=== PATIENT | female | born 1950 | race Caucasian/White ===

== ENCOUNTER → 2018-12-04 | Day surgery (SDC) | payer MEDICARE, OTHER ==
[~2018-12-04] MED LIST: BUPIVACAINE/PF 0.25% ONE; CARV3.1212 PO; DIGO125T PO; EPINEPHRINE 1 MG/ML, 1ML ONE; FENTANYL PF 250 MCG/5ML ONE; LISI2.5T PO; MIDAZOLAM 1 MG/ML, 2ML ONE; PROPOFOL 50 ML ONE; SIMV5TAB14 PO; VANCOMYCIN 1,000 MG ONE; WARF1TAB PO; metoprolol PO
== END | disposition home or self-care (01) ==
LOC: OR 15:00
PROVIDERS: ATTEND Plastic Surgery
DX: Z02.9 Encounter for administrative examinations, unspecified (principal)
CPT/HCPCS: J0171; J2250; J2704; J3010; J3370; J3490

== ENCOUNTER → 2019-02-05 | Outpatient (CLI) | payer OTHER ==
[~2019-02-05] MED LIST changes: -BUPIVACAINE/PF 0.25% ONE; +CARV12.543 PO; -EPINEPHRINE 1 MG/ML, 1ML ONE; -FENTANYL PF 250 MCG/5ML ONE; +LISI-167 PO; +METO25TA35 PO; -MIDAZOLAM 1 MG/ML, 2ML ONE; -PROPOFOL 50 ML ONE; +SIMV40TA3 PO; -VANCOMYCIN 1,000 MG ONE; +WARF-36 PO
[2019-02-05 14:40] LABS: ALANINE AMINOTRANSFERASE 26 U/L (12-78); ALBUMIN 3.6 g/dL (3.4-5.0); ANION GAP 5 mmol/L (5-15); CALCIUM 8.9 mg/dL (8.5-10.1); CHLORIDE 108 mmol/L (98-107); CREATININE 0.84 mg/dL (0.55-1.02)
[2019-02-05 14:41] LABS: ALKALINE PHOSPHATASE 80 U/L (45-117); BILIRUBIN,TOTAL 0.7 mg/dL (0.2-1.0); TOTAL PROTEIN 6.9 g/dL (6.4-8.2)
== END | disposition home or self-care (01) ==
LOC: STAR 13:13
PROVIDERS: ATTEND Thoracic Surgery (Cardiothoracic Vascular Surgery)
DX: Z01.818 Encounter for other preprocedural examination (principal); K43.9 Ventral hernia without obstruction or gangrene; R94.31 Abnormal electrocardiogram [ECG] [EKG]
CPT/HCPCS: 36415; 80053; 93005

== ENCOUNTER 2019-02-16 11:31 | Inpatient (IN) | payer OTHER ==
[~2019-02-16] VITALS: Ht 165.1 cm; Wt 66.0 kg
[2019-02-16] MEDS ORDERED: LACTATED RINGERS 1,000 ML IV SCH (12:04)
[2019-02-16 13:16] LABS: INTERNATIONAL NORMALIZED RATIO 0.99 (0.93-1.1); PROTHROMBIN TIME 10.4 Seconds (9.6-11.5)
[2019-02-16] MEDS ORDERED: CEFAZOLIN 1,000 MG ONE ×2 (13:26→15:29)
[2019-02-16] MEDS ORDERED: EPINEPHRINE 1 MG/ML, 1ML ONE (13:26)
[2019-02-16] MEDS ORDERED: BUPIVACAINE/PF 0.25% ONE (13:26)
[2019-02-16] MEDS ORDERED: BUPIVACAINE/PF-EPI 0.5% 1:200K ONE (13:26)
[2019-02-16] MEDS ORDERED: MIDAZOLAM 1 MG/ML, 2ML ONE (13:54)
[2019-02-16] MEDS ORDERED: FENTANYL PF 250 MCG/5ML ONE (13:54)
[2019-02-16] MEDS ORDERED: LABETALOL 5MG/ML, 20ML IV PRN (14:30)
[2019-02-16] MEDS ORDERED: DIAZEPAM 5 MG/ML, 2ML IVPush PRN (14:30)
[2019-02-16] MEDS ORDERED: hydrALAzine 20 MG/ML, 1ML IV PRN ×2 (14:30→16:00)
[2019-02-16] MEDS ORDERED: ALBUTEROL SULFATE 2.5 MG/3 ML NPPB PRN (14:30)
[2019-02-16] MEDS ORDERED: MEPERIDINE/PF 25MG/0.5ML IVPush PRN (14:30)
[2019-02-16] MEDS ORDERED: PROMETHAZINE 25 MG/ML, 1ML IV PRN (14:30)
[2019-02-16] MEDS ORDERED: OXYcodone 5 MG/5 ML ORAL.SOL UDC PO PRN (14:30)
[2019-02-16] MEDS ORDERED: ACETAMINOPHEN 325 MG TABLET PO PRN (14:30)
[2019-02-16] MEDS ORDERED: ONDANSETRON 2MG/ML, 2ML ONE (15:29)
[2019-02-16] MEDS ORDERED: GLYCOPYRROLATE 0.2MG/1ML, 5ML ONE (15:29)
[2019-02-16] MEDS ORDERED: SUCCINYLCHOLINE 20 MG/ML, 10ML ONE (15:29)
[2019-02-16] MEDS ORDERED: DEXAMETHASONE 4 MG/ML, 1ML ONE (15:29)
[2019-02-16] MEDS ORDERED: NEOSTIGMINE 1 MG/ML, 10ML ONE (15:29)
[2019-02-16] MEDS ORDERED: ROCURONIUM 10MG/ML,5ML ONE (15:29)
[2019-02-16] MEDS ORDERED: PROPOFOL 10 MG/ML, 20ML ONE (15:29)
[2019-02-16] MEDS ORDERED: FENTANYL PF 100 MCG/2ML ONE (15:41)
[2019-02-16] MEDS: FENTANYL PF 100 MCG/2ML IV PRN ×2 (15:44→15:53)
[2019-02-16] MEDS ORDERED: OXYcodone 5 MG/5 ML ORAL.SOL UDC ONE (15:47)
[2019-02-16] MEDS ORDERED: HYDROmorphone 2 MG/ML, 1ML ONE (15:47)
[2019-02-16] MEDS: HYDROmorphone 2 MG/ML, 1ML IVPush PRN ×4 (15:53→16:53)
[2019-02-16] MEDS ORDERED: ACETAMINOPHEN 650 MG/20.3 ML UDC PO PRN (16:00)
[2019-02-16] MEDS ORDERED: DIPHENHYDRAMINE 50 MG/ML, 1ML IV PRN (16:00)
[2019-02-16] MEDS ORDERED: morphine SULFATE 10 MG/ML, 1ML IV PRN (16:00)
[2019-02-16] MEDS ORDERED: PROMETHAZINE 25 MG/ML, 1ML IM PRN (16:00)
[2019-02-16] MEDS ORDERED: LORazepam 1MG TABLET PO PRN (16:00)
[2019-02-16] MEDS ORDERED: LORazepam 2 MG/ML, 1ML IV PRN (16:00)
[2019-02-16] MEDS ORDERED: DIPHENHYDRAMINE 25 MG CAPSULE PO PRN (16:00)
[2019-02-16] MEDS ORDERED: PROMETHAZINE 12.5 MG SUPP PR PRN (16:00)
[2019-02-16] MEDS ORDERED: ENALAPRILAT 1.25 MG/ML, 2ML IV PRN (16:00)
[2019-02-16] MEDS ORDERED: KETOROLAC 30 MG/1 ML ONE (16:06)
[2019-02-16] MEDS: KETOROLAC 30 MG/1 ML IV PRN ×2 (16:09→23:32)
[2019-02-16] MEDS ORDERED: hydrALAzine 20 MG/ML, 1ML ONE (16:32)
[2019-02-16 19:02] VITALS: BP 149/87
[2019-02-16] MEDS: LACTATED RINGERS 1,000 ML IV SCH (20:47)
[2019-02-16] MEDS: ONDANSETRON 2MG/ML, 2ML IVPush PRN (20:48)
[2019-02-16] MEDS: FAMOTIDINE 20 MG/2 ML IV SCH (20:52)
[2019-02-16] MEDS: FAMOTIDINE 20 MG TABLET PO SCH (20:56)
[2019-02-16] MEDS ORDERED: SIMVASTATIN 40 MG TABLET PO SCH (21:00)
[2019-02-16 23:47] VITALS: BP 156/88
[2019-02-17] MEDS ORDERED: LACTATED RINGERS 500 ML IVBOLUS ONE
[2019-02-17 04:18] VITALS: BP 125/73
[2019-02-17] MEDS: ONDANSETRON 2MG/ML, 2ML IVPush PRN ×3 (05:21→13:30)
[2019-02-17] MEDS: LACTATED RINGERS 1,000 ML IV SCH (05:37)
[2019-02-17] MEDS: KETOROLAC 30 MG/1 ML IV PRN ×2 (05:37→13:30)
[2019-02-17 07:07] VITALS: BP 120/76
[2019-02-17] MEDS ORDERED: LISINOPRIL 10 MG TABLET PO SCH (09:00)
[2019-02-17] MEDS ORDERED: METOPROLOL TARTRATE 25 MG TABLET PO SCH (09:00)
[2019-02-17] MEDS ORDERED: ENOXAPARIN 40 MG/0.4 ML SQ SCH (09:00)
[2019-02-17] MEDS ORDERED: CARVEDILOL 12.5 MG TABLET PO SCH (09:00)
[2019-02-17] MEDS ORDERED: OXYC5TAB3 PO (09:14)
[2019-02-17] MEDS ORDERED: ACET-1600 PO (09:15)
[2019-02-17] MEDS ORDERED: IBUP-1222 PO (09:16)
[2019-02-17 09:25] VITALS: BP 163/89
[2019-02-17] MEDS: FAMOTIDINE 20 MG/2 ML IV SCH (09:26)
[2019-02-17] MEDS: FAMOTIDINE 20 MG TABLET PO SCH (09:28)
[2019-02-17] MEDS: HYDROcodone/APAP 5/325 TABLET PO PRN ×2 (09:33→13:30)
[2019-02-17 13:21] VITALS: BP 145/80
[2019-02-17 13:55] VITALS: BP 145/80
== END 2019-02-17 16:00 | disposition home or self-care (01) | DRG 908 ==
LOC: OUT 11:31 → 4NOR 18:03 → OUT 23:27 → 4NOR 23:28 → DCLOUNGE 02-17 15:30
PROVIDERS: ADMIT Thoracic Surgery (Cardiothoracic Vascular Surgery); ATTEND Plastic Surgery
PROC: 0H0T0ZZ Alteration of Right Breast, Open Approach (ICD-10-PCS; 2019-02-16)
PROC: 0WUF0JZ Supplement Abdominal Wall with Synthetic Substitute, Open Approach (ICD-10-PCS; principal; 2019-02-16 14:00)
PROC: 0HPU0JZ Removal of Synthetic Substitute from Left Breast, Open Approach (ICD-10-PCS; 2019-02-16 14:00)
DX: T85.898A Other specified complication of other internal prosthetic devices, implants and grafts, initial encounter (principal); I50.32 Chronic diastolic (congestive) heart failure; K43.2 Incisional hernia without obstruction or gangrene; K66.0 Peritoneal adhesions (postprocedural) (postinfection); Y83.8 Other surgical procedures as the cause of abnormal reaction of the patient, or of later complication, without mention of misadventure at the time of the procedure; N62 Hypertrophy of breast; Z85.3 Personal history of malignant neoplasm of breast; Z98.82 Breast implant status; Y92.89 Other specified places as the place of occurrence of the external cause
CPT/HCPCS: 36415; J3490; 85610; 88305; C1729; G0378; J0171; J0690; J1100; J1170; J1650; J1885; J2250; J2405; J2704; J2710; J3010; J3360; J7120; C1781; J0330; J0360